=== PATIENT | male | born 1970 | race Caucasian/White ===

== ENCOUNTER 2019-02-16 14:01 | Emergency (ER) | payer BC ==
[~2019-02-16] VITALS: Ht 185.4 cm; Wt 113.4 kg
[~2019-02-16 14:01] MED LIST: COLAZAL750 M1; ZOFRAN ODT4 MG PO
[2019-02-16 15:30] VITALS: BP 110/76
== END 2019-02-16 15:30 | disposition home or self-care (01) ==
LOC: ER 14:01
DX: S61.211A Laceration without foreign body of left index finger without damage to nail, initial encounter (principal); W26.8XXA Contact with other sharp object(s), not elsewhere classified, initial encounter; Y92.89 Other specified places as the place of occurrence of the external cause; Y93.89 Activity, other specified; Y99.8 Other external cause status